=== PATIENT | female | born 1975 | race Two or more races ===

== ENCOUNTER → 2024-10-10 | Outpatient (CLI) | payer MEDICAID, SELFPAY ==
--- NOTE | 2024-10-10 09:23 | XR_ITS ---
Examination: Esophagram standard Fluoroscopy 8 spot fluoroscopic films of the esophagus No active chest single view Upright soft tissue lateral neck single view Exam date and time: October 10, 2024 1122 hours INDICATIONS: Difficulty swallowing swelling and throat beginning 2 months ago TECHNIQUE AND FINDINGS: Upright PA chest single view demonstrates normal heart size No mediastinal lymphadenopathy Lungs are clear Soft tissue lateral neck single view shows normal epiglottis No prevertebral soft tissue prominence Patient swallowed thin barium with a spot fluoroscopic films of the sella turcica is Primary peristaltic esophageal waves Mild intermittent gastroesophageal reflux There is no stricture at the gastroesophageal junction No esophageal ulceration or intraluminal defect IMPRESSION: Mild intermittent gastroesophageal reflux If swelling in the throat persists, consider CT soft tissue neck post intravenous contrast follow-up
== END | disposition home or self-care (01) ==
PROVIDERS: PCP Family Medicine; Referring Provider Nurse Practitioner Family; Visit Provider Nurse Practitioner Family
DX: K21.9 Gastro-esophageal reflux disease without esophagitis (principal)
CPT/HCPCS: 74220

== ENCOUNTER 2024-12-12 09:18 | Emergency (ER) | payer MEDICAID, SELFPAY ==
[2024-12-12 09:18] VITALS: BMI 31.4
[2024-12-12 09:52] VITALS: BP 98/70; PULSE 55; RESP 18; TEMP 36.6; O2SAT 100
--- NOTE | 2024-12-12 10:01 | EKG_ITS ---
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
--- NOTE | 2024-12-12 10:01 | XR_ITS ---
Examination: PA lateral chest 2 views TECHNIQUE: Upright PA lateral chest 2 views Exam date and time: December 12, 2024 1006 hours INDICATIONS: Chest pain beginning one month ago FINDINGS: Normal heart size. Lungs are clear. The osseous structures are intact IMPRESSION: No active disease
--- NOTE | 2024-12-12 10:02 | PD.EDRME ---
Rapid Medical Screening Exam RME Arrival date/time: 12/12/24 09:18 49-year-old female with no known medical history presents to the emergency room with a chief complaint of left arm numbness, cough and congestion x 1 month Chief Complaint: Flu Like Symptoms Vital signs: Vital Signs Temperature 97.9 F 12/12/24 09:52 Pulse Rate 55 L 12/12/24 09:52 Respiratory Rate 18 12/12/24 09:52 Blood Pressure 98/70 12/12/24 09:52 Pulse Oximetry (%) 100 12/12/24 09:52 Oxygen Delivery Method Room Air 12/12/24 09:52 Vital signs reviewed by provider: Yes
[2024-12-12 11:03] LABS: Collection Type, Urine Clean Catch
[2024-12-12 11:20] LABS: Amphetamine/Methamp Scrn,U Negative (Negative); Barbiturate Screen,Urine Negative (Negative); Benzodiazepines Screen,Urine Negative (Negative); Benzoylecgonine Screen, Ur Negative (Negative); Fentanyl Screen,Urine Negative (Negative); Opiate Screen,Urine Negative (Negative); THC Screen,Urine Negative (Negative)
[2024-12-12 11:27] LABS: Bilirubin,Urine Negative (Negative); Blood,Urine 2+ (Negative); Clarity,Urine Clear (Clear/Hazy); Color,Urine Lt-Yellow (Lt Yel-Yel); Glucose, Urine Negative (Negative); Ketones,Urine Negative (Negative); Leukocyte Esterase,Urine Negative (Negative); Nitrite,Urine Negative (Negative); Protein,Urine Negative (Neg - Trace); RBC,Urine < 1 /hpf (0-3); Specific Gravity,Urine 1.018 (1.001-1.035); Squamous Epithelial Cell,Urine 2 /hpf (0-5); Urobilinogen,Urine Negative mg/dL (0.0-1.0); WBC,Urine < 1 /hpf (0-5)
[2024-12-12 11:53] LABS: B-Type Natriuretic Peptide < 20 pg/mL (0-100)
[2024-12-12 11:54] LABS: Basophils % (Auto) 0 % (0-2.5); Eosinophils # (Auto) 0.1 Thou/mm3 (0.0-0.5); Eosinophils % (Auto) 1 % (0-10); Hematocrit 40.6 % (36.0-46.0); Immature Granulocytes % (Auto) 0 % (0-0); Immature Granulocytes Auto 0.02 Thou/mm3 (0.00-0.00); Lymphocytes # (Auto) 1.6 Thou/mm3 (1.0-4.8); Lymphocytes % (Auto) 25 % (10-50); Mean Corpuscular Hemoglobin 29.5 pg (25.0-35.0); Mean Corpuscular Volume 92 fL (80-100); Monocytes # (Auto) 0.3 Thou/mm3 (0.0-0.8); Monocytes % (Auto) 5 % (0-12); Neutrophils # (Auto) 4.4 Thou/mm3 (1.8-7.7); Neutrophils % (Auto) 69 % (37-80); Nucleated Red Blood Cell % 0 /100 WBC (0); Platelet Count 158 Thou/mm3 (140-440); RDW Standard Deviation 48.9 fL (36.4-46.3); White Blood Count 6.4 Thou/mm3 (3.6-11.0)
[2024-12-12 12:00] LABS: Alanine Aminotransferase 16 U/L (10-49); Albumin, Serum 4.7 gm/dL (3.5-5.0); Albumin/Globulin Ratio 1.7 (1.2-2.2); Alkaline Phosphatase 62 U/L (46-116); Anion Gap 6 (7-16); Aspartate Amino Transferase 22 U/L (0-34); BUN/Creatinine Ratio 16 Ratio (12-20); Bilirubin,Total 0.5 mg/dL (0.3-1.2); Blood Urea Nitrogen 14 mg/dL (9-23); Calcium 9.4 mg/dL (8.3-10.6); Calcium (Corrected) 9.4 mg/dL (8.5-10.1); Carbon Dioxide 24.6 mMol/L (20.0-31.0); Chloride 109 mMol/L (98-107); Creatinine (Component) 0.9 mg/dL (0.6-1.3); Estimated Creatinine Clearance 82.7 mL/min (>60); Free T4 (Free Thyroxine) 0.36 ng/dL (0.89-1.76); Globulin 2.8 gm/dL (2.3-3.5); Glucose 85 mg/dL (74-106); LDH (Lactate Dehydrogenase) 202 U/L (120-246); Magnesium 1.9 mg/dL (1.6-2.6); Osmolality,Calculated 278 (275-295); Potassium 4.1 mMol/L (3.4-5.1); Sodium 140 mMol/L (136-145); Thyroid Stimulating Hormone 137.15 uIU/mL (0.55-4.78); Total Protein 7.5 gm/dL (5.7-8.2); Troponin I < 0.002 ng/mL (0.0-0.045); eGFR > 60 See Note
[2024-12-12 13:15] LABS: Partial Thromboplastin Time 21.7 Seconds (22.0-36.0); Prothrombin Time 10.8 Seconds (9.0-12.2)
[2024-12-12 13:33] VITALS: BP 102/64; PULSE 54; RESP 18; TEMP 37; O2SAT 99
--- NOTE | 2024-12-12 14:30 | PD.EDURI ---
Upper Respiratory Inf. RME/HPI General Chief Complaint: Flu Like Symptoms Stated Complaint: HEADACHE, SORE THROAT, VOMITING DIARRHEA X2 Time Seen by Provider: 12/12/24 14:05 Arrival date/time: 12/12/24 09:18 RME / HPI RME / HPI Narrative: 49-year-old female patient with significant history of hypothyroidism, came in for evaluation regarding flulike symptoms. Patient's been having flulike symptoms, describes headache, sore throat, nausea, vomiting diarrhea x 2 days. Patient denies any other complaints currently taking levothyroxine 200 mcg daily with good compliance. Related Data Previous Rx's ?Medication ?Instructions ?Recorded levothyroxine 100 mcg tablet 200 mcg (2 x 100 mcg) PO ACBR #30 02/22/24 tabs sennosides 8.6 mg tablet (senna) 8.6 mg PO QDAY PRN constipation 30 02/22/24 days #30 tabs nicotine 7 mg/24 hr daily 7 mg topical DAILY #14 ea 04/02/24 transdermal patch varenicline 0.5 mg (11)-1 mg (42) 0.5 tab PO DAILY #53 tabs 04/03/24 tablets in a dose pack (Chantix Starting Month Box) ibuprofen 800 mg tablet 800 mg PO Q8H PRN pain #30 tabs 12/12/24 Allergies Allergy/AdvReac Type Severity Reaction Status Date / Time No Known Allergies Allergy Verified 12/12/24 09:22 Review of Systems Review of Systems Narrative Review of Systems: Review of system reviewed and within normal limits except mentioned in HPI ED Exam Narrative Physical exam: VITAL SIGNS: Reviewed. GENERAL APPEARANCE: Alert and interactive, follows commands, no acute distress, HEAD AND FACE: Non-traumatic. ENT: PERRL, pink conjunctivitis, eyelid no trauma, Mucous membrane moist. NECK: Supple, nontender, no nuchal rigidity. CHEST: No tenderness, no crepitus, no paradoxical movement, no retractions. LUNGS: Clear, well ventilated, symmetric, no rales, no wheezing, no ronchi, no stridor, good breath sounds bilaterally. HEART: Regular rate, regular rhythm, no murmur, no gallops. ABDOMEN: Soft, positive bowel sounds, nondistended, no guarding, nontender, no rebound, no masses, RECTAL: Deferred. GENITAL: Deferred. NEUROLOGICAL: Gross motor function intact sensory function intact, Appropriate for age. MUSCULOSKELETAL: low back nontender, full range of motion. EXTREMITIES: Nontender, full range of motion. SKIN: Color pink, dry, no rash, no lacerations, no abrasions, no contusions. LYMPHATICS: Deferred. Course Quality Measures none Orders Category Date Time Status Bedside COVID-19 Antigen Test NOW Care 12/12/24 10:01 Active Bedside Influenza A&B Antigen Test NOW Care 12/12/24 10:01 Active EKG (ED ONLY) *Do not use* NOW Care 12/12/24 10:01 Completed EKG (ED Only) Stat Exams 12/12/24 10:01 Draft XR chest 2V Stat Exams 12/12/24 10:01 Completed B-Type Natriuretic Peptide Stat Lab 12/12/24 10:57 Completed CBC Stat Lab 12/12/24 10:57 Completed Comprehensive Metabolic Panel Stat Lab 12/12/24 10:57 Completed Drug Screen,Urine Stat Lab 12/12/24 10:45 Completed Free T4 (Free Thyroxine) Stat Lab 12/12/24 10:57 Completed LDH (Lactate Dehydrogenase) Stat Lab 12/12/24 10:57 Completed Magnesium Stat Lab 12/12/24 10:57 Completed Partial Thromboplastin Time Stat Lab 12/12/24 10:57 Completed Prothrombin Time with INR Stat Lab 12/12/24 10:57 Completed TSH [Thyroid Stimulating Hormone] Stat Lab 12/12/24 10:57 Completed Troponin I Stat Lab 12/12/24 10:57 Completed Urinalysis Stat Lab 12/12/24 10:45 Completed Vital Signs Vital signs: Vital Signs Temperature 97.9 F 12/12/24 09:52 Pulse Rate 55 L 12/12/24 09:52 Respiratory Rate 18 12/12/24 09:52 Blood Pressure 98/70 12/12/24 09:52 Pulse Oximetry (%) 100 12/12/24 09:52 Oxygen Delivery Method Room Air 12/12/24 09:52 Upper Respiratory Infection MDM Narrative MDM Narrative:: 49-year-old female patient with significant history of hypothyroidism, came in for evaluation regarding flulike symptoms. Patient's been having flulike symptoms, describes headache, sore throat, nausea, vomiting diarrhea x 2 days. Patient denies any other complaints currently taking levothyroxine 200 mcg daily with good compliance. Laboratory workup all came back unremarkable except for hypothyroidism. Urinalysis no UTI. Chest x-ray came back unremarkable. EKG showed sinus bradycardia, ventricular rate of 52 bpm, no ST segment elevation depression noted. She was advised to closely follow-up with PCP regarding her hypothyroidism. Patient appears nontoxic and hemodynamically stable. Patient discharged home and instructed to follow-up with primary care provider in 24 to 48 hours. Instructed to return to the emergency department immediately if worsening of symptoms Patient data External records reviewed:: None Clinical information provided by:: patient Social determinants that could affect healthcare access:: none Patient has the following chronic illnesses:: None How is presenting disease/condition affected by chronic disease/condition?: no chronic disease Evaluation data The following diagnostics were reviewed and interpreted by me:: lab results, radiology exam(s) and EKG tracing(s) Lab and/or radiology exams considered but not ordered:: None Interpretation Summary: See results MDM Medications / Prescriptions Medications or Prescriptions considered but not ordered:: None Medication administrations:: None Consultations Consultation(s) initiated? (list below): No Diagnosis Upper Respiratory Differential Diagnosis: upper respiratory infection, viral infection and pharyngitis Most likely diagnosis given after review of the tests above:: Flulike symptoms, hypothyroidism Admission Indicated Admission indicated?: not indicated Explain why admission is indicated or not indicated:: Stable Admission Request Was there a request for admission?: No Disposition Plan Disposition Plan: Discharge Discharge Attestation Discharge Attestation: The patient and all family members were given an opportunity to ask questions and understood the discharge instructions. Discharge instructions specifically effects, indications for sooner follow up or return to the emergency department, and the expected course of current diagnosis. Patient condition: Stable Discharge Plan Plan Patient Disposition: HOME (Self Care) Disposition Comment: Stable Prescriptions/Referrals Prescriptions/Med Rec: New ibuprofen 800 mg tablet 800 mg PO Q8H PRN (Reason: pain) Qty: 30 0RF No Action nicotine 7 mg/24 hr patch 24 hour 7 mg topical DAILY Qty: 14 0RF varenicline [Chantix Starting Month Box] 0.5 mg (11)- 1 mg (42) tablets,dose pack 0.5 tab PO DAILY Qty: 53 0RF levothyroxine 100 mcg Tablet 200 mcg PO ACBR Qty: 30 3RF sennosides [senna] 8.6 mg tablet 8.6 mg PO QDAY PRN (Reason: constipation) 30 Days Qty: 30 2RF Referrals: No Primary/Family,Physician [Primary Care Provider] - In 1 week Problem List Clinical Impression: Flu-like symptoms, Hypothyroidism Patient/Caregiver Discharge Instructions Discharge Activity: activity as tolerated Education Materials: ED Hypothyroidism Additional Instructions: Thank you for the opportunity for serving you today. You are stable for discharged . You are advised to: Follow-up with your PCP in 1 to 2 days Return to ED for worsening of symptoms Increase oral fluids Take medication as prescribed Print Language: Wolof Stand Alone Forms: Gela Award Info., Patient Portal Info Letter PA/BEHAVIOR CLINICIAN Supervising Physician PA/BEHAVIOR CLINICIAN Supervising Physician: Dr Kaba
[2024-12-12 14:46] VITALS: BP 102/71; PULSE 50; RESP 12; O2SAT 100
== END 2024-12-12 15:23 | disposition home or self-care (01) ==
PROVIDERS: Nurse Practitioner Family; Emergency Provider Emergency Medicine
DX: R51.9 Headache, unspecified (principal); E03.9 Hypothyroidism, unspecified; J02.9 Acute pharyngitis, unspecified; R19.7 Diarrhea, unspecified; R11.2 Nausea with vomiting, unspecified
CPT/HCPCS: 36415; 71046; 80053; 80307; 81001; 83615; 83735; 83880; 84439; 84443; 84484; 85025; 85610; 85730; 93005; 99283

== ENCOUNTER → 2024-12-17 | Outpatient (CLI) | payer MEDICAID, SELFPAY ==
--- NOTE | 2024-12-17 09:49 | XR_ITS ---
Examination: Esophagram standard Fluoroscopy 28 spot fluoroscopic films of the esophagus Upright PA chest single view Upright soft tissue lateral neck single view Exam date and time: December 17, 2024 1047 hours INDICATIONS: Difficulty swallowing 6 months TECHNIQUE AND FINDINGS: Upright PA chest single view demonstrates normal heart size lungs Soft tissue lateral neck demonstrates normal epiglottis no prevertebral foreign body Patient swallowed thin barium with 28 spot fluoroscopic films of the esophagus, fluoroscopy 0.22 minutes Primary peristaltic esophageal waves noted No constricting esophageal lesion Mild gastroesophageal reflux. There is no stricture at the gastroesophageal junction IMPRESSION: Mild gastroesophageal reflux There is no stricture at the gastroesophageal junction
== END | disposition home or self-care (01) ==
LOC: CDIM 09:28
PROVIDERS: PCP Nurse Practitioner Family; Referring Provider Nurse Practitioner Family; Visit Provider Nurse Practitioner Family
DX: R13.10 Dysphagia, unspecified (principal); K21.9 Gastro-esophageal reflux disease without esophagitis
CPT/HCPCS: 74220; A4699

== ENCOUNTER 2025-01-27 08:14 | Emergency (ER) | payer MEDICAID, SELFPAY ==
[2025-01-27 08:17] VITALS: BMI 33.5
[2025-01-27 08:30] VITALS: BP 110/79; PULSE 62; RESP 17; TEMP 36.4; O2SAT 97
--- NOTE | 2025-01-27 08:39 | XR_ITS ---
Examination: Hand, left 3 views Technique: Hand AP, oblique, lateral 3 views Date and time of exam: January 27, 2025 0842 hours INDICATIONS: Injury to the hand 2 days ago, hand pain FINDINGS: No acute fracture. No dislocation No foreign body IMPRESSION: No acute fracture
--- NOTE | 2025-01-27 08:43 | EDNOTE_ITS ---
Upper Extremity Injury RME/HPI General Chief Complaint: Hand/Wrist Problems Stated Complaint: BILATERAL HAND INJURY Time Seen by Provider: 01/27/25 08:19 Source: patient Arrival date/time: 01/27/25 08:14 49-year-old female with no known medical history presents to the emergency room with a chief complaint of bilateral hand injuries. Patient states on Monday while at work she was hit with a ladder to the outer part of her hand causing tenderness and pain when she clenches her fists. Patient is also complaining of a thorn piercing her right index finger that is now causing tenderness and pain to her right index finger. Mode of arrival: ambulatory Limitations: no limitations Related Data Previous Rx's ?Medication ?Instructions ?Recorded levothyroxine 100 mcg tablet 200 mcg (2 x 100 mcg) PO ACBR #30 02/22/24 tabs sennosides 8.6 mg tablet (senna) 8.6 mg PO QDAY PRN co nstipation 30 02/22/24 days #30 tabs nicotine 7 mg/24 hr daily 7 mg topical DAILY #14 ea transdermal patch varenicline tartrate 0.5 mg (11)-1 0.5 tab PO DAILY #5 3 tabs 04/03/24 mg (42) tablets in a dose pack (Chantix Starting Month Box) ibuprofen 800 mg tablet 800 mg PO Q8H PRN pain #30 t abs 12/12/24 cephalexin 500 mg capsule 500 mg PO BID 7 days #14 cap s 01/27/25 Allergies Allergy/AdvReac Type Severity Reaction Status Date / Time No Known Allergies Allergy Verified 12/12/24 09:22 Review of Systems Review of Systems Systems Reviewed: All systems reviewed, normal except as documented Constitutional Constitutional: Reports system reviewed and no additional complaints, except as documented, Denies fatigue, Denies fever(s), Denies headache(s) and Denies weakness Eyes Eyes: Reports system reviewed and no additional complaints, except as documented, Denies blurry vision and Denies change in vision ENT Ears, Nose, Mouth, and Throat: Reports system reviewed and no additional complaints, except as documented, Denies otalgia, Denies headache(s), Denies nasal congestion, Denies throat swelling and Denies vertigo Cardiovascular Cardiovascular: Reports system reviewed and no additional complaints, except as documented, Denies chest pain, Denies dyspnea and Denies dyspnea on exertion Respiratory Respiratory: Reports system reviewed and no additional complaints, except as documented, Denies chest congestion, Denies cough, Denies dyspnea, Denies dyspnea on exertion and Denies wheezing Gastrointestinal Gastrointestinal: Reports system reviewed and no additional complaints, except as documented, Denies abdominal pain, Denies cramping, Denies nausea and Denies vomiting Genitourinary Genitourinary: Reports system reviewed and no additional complaints, except as documented Musculoskeletal Musculoskeletal: Reports system reviewed and no additional complaints, except as documented and Denies back pain Integumentary/Breasts Skin/Breast: Reports system reviewed and no additional complaints, except as documented and Reports wounds Neurologic Neurologic: Reports system reviewed and no additional complaints, except as documented, Denies confusion, Denies headache(s), Denies lack of coordination, Denies vertigo and Denies weakness Psychiatric Psychiatric: Reports system reviewed and no additional complaints, except as documented, Denies anxiety, Denies confusion, Denies depression, Denies paranoia, Denies suicidal ideation and Denies tactile hallucinations Endocrine Endocrine: Reports system reviewed and no additional complaints, except as documented and Denies fatigue Hematologic/Lymphatic Hematologic/Lymphatic: Reports system reviewed and no additional complaints, except as documented and Denies lymphadenopathy Allergic/Immunologic Allergic/Immunologic: Reports system reviewed and no additional complaints, except as documented, Denies throat swelling, Denies urticaria and Denies wheezing ED Exam General Limitations: Present no limitations General appearance: Present alert and in no apparent distress Head Head exam: Present atraumatic Eye Eye exam: Present normal appearance, PERRL and EOMI ENT ENT exam: Present normal exam, normal oropharynx and mucous membranes moist Neck Neck exam: Present normal inspection, full ROM and trachea midline Chest Chest inspection: Present normal inspection and symmetric chest wall rise Respiratory Respiratory exam: Present normal lung sounds bilaterally Cardiovascular Cardiovascular exam: Present regular rate, normal rhythm and normal heart sounds Abdominal Exam Abdominal exam: Present soft and normal bowel sounds Extremities Exam Extremities exam: Present normal inspection and full ROM Expanded Upper Extremity Exam Shoulder exam: Present normal inspection Arm exam: Present normal inspection Elbow exam: Present normal inspection Forearm/Wrist exam: Present normal inspection Hand exam: Present tenderness and erythema Hand L/R back image: 2 1. Thorn puncture causing tenderness pain and mild erythema and swelling. 2. Tenderness and pain after being hit by a ladder while at work. Back Exam Back exam: Present normal inspection and full ROM Neurological Exam Neurological exam: Present alert, oriented X3 and CN II-XII intact Psychiatric Psychiatric exam: Present normal affect and normal mood Skin Skin exam: Present warm, dry, intact and normal color Course Quality Measures none Orders Category Date Time Status XR hand comp LT min 3V Stat Exams 01/27/25 08:39 Completed Vital Signs Vital signs: Vital Signs Temperature 97.6 F 01/27/25 08:30 Pulse Rate 62 01/27/25 08:30 Respiratory Rate 17 01/27/25 08:30 Blood Pressure 110/79 01/27/25 08:30 Pulse Oximetry (%) 97 01/27/25 08:30 Oxygen Delivery Method Room Air 01/27/25 08:30 O2 saturation 97% within normal limits Extremity Injury MDM Narrative MDM Narrative:: 49-year-old female with no known medical history presents to the emergency room with a chief complaint of bilateral hand injuries. Patient states on Monday while at work she was hit with a ladder to the outer part of her hand causing tenderness and pain when she clenches her fists. Patient is also complaining of a thorn piercing her right index finger that is now causing tenderness and pain to her right index finger. Patient is hemodynamically stable and in no apparent distress. She is afebrile not tachycardic and not tachypneic Physical examination of her right hand shows pain and tenderness to her index finger as well as mild swelling. Patient states on Monday she was punctured by a thorn at work. Patient states the thorn is removed but it was causing her some pain when she moves her finger. Physical examination also shows some tenderness and pain to the left hand. Patient states that while at work she was using a ladder and while moving a ladder injured her left hand. X-ray of the left hand was completed and was negative for any acute fracture or dislocation Patient was discharged and educated to follow-up with primary care provider in the next 24 to 48 hours and return to the emergency room for any evidence of worsening signs or symptoms Patient data External records reviewed:: [facility] previous records Clinical information provided by:: patient Social determinants that could affect healthcare access:: none Patient has the following chronic illnesses:: No chronic illness How is presenting disease/condition affected by chronic disease/condition?: no chronic disease Evaluation data The following diagnostics were reviewed and interpreted by me:: lab results and radiology exam(s) Lab and/or radiology exams considered but not ordered:: Labs and radiology exams considered and ordered Interpretation Summary: Left hand x-ray-no acute fracture or dislocation Medications / Prescriptions Medications or Prescriptions considered but not ordered:: Rx given Medication administrations:: Rx given Consultations Consultation(s) initiated? (list below): No Diagnosis Upper Extremity Injury Differential Diagnosis: finger sprain, fracture of hand and other (Cellulitis) Most likely diagnosis given after review of the tests above:: Cellulitis of finger Admission Indicated Admission indicated?: not indicated Admission Request Was there a request for admission?: No Disposition Plan Disposition Plan: Discharge Discharge Attestation Discharge Attestation: The patient and all family members were given an opportunity to ask questions and understood the discharge instructions. Discharge instructions specifically effects, indications for sooner follow up or return to the emergency department, and the expected course of current diagnosis. Patient condition: Stable Discharge Plan Plan Patient Disposition: HOME (Self Care) Discharge Disposition comment: Stable Prescriptions/Referrals Prescriptions/Med Rec: New cephalexin 500 mg capsule 500 mg PO BID 7 Days Qty: 14 0RF No Action nicotine 7 mg/24 hr patch 24 hour 7 mg topical DAILY Qty: 14 0RF varenicline tartrate [Chantix Starting Month Box] 0.5 mg (11)- 1 mg (42) tablets,dose pack 0.5 tab PO DAILY Qty: 53 0RF ibuprofen 800 mg tablet 800 mg PO Q8H PRN (Reason: pain) Qty: 30 0RF levothyroxine 100 mcg Tablet 200 mcg PO ACBR Qty: 30 3RF sennosides [senna] 8.6 mg tablet 8.6 mg PO QDAY PRN (Reason: constipation) 30 Days Qty: 30 2RF Referrals: Jj Kinney PA-C [Primary Care Provider] - In 1 week Problem List Clinical Impression: Cellulitis of right index finger Patient/Caregiver Discharge Instructions Education Materials: Discharge Instructions for Cellulitis, ED Cellulitis Additional Instructions: Por favor, consulte con hooks m?dico de cabecera en las pr?ximas 24 a 48 horas. Se le enviar?n antibi?ticos a hooks farmacia para aliviar la inflamaci?n leve y la sensibilidad en el dedo derecho. Rec?jalos y t?melos seg?n lo indicado. Si observa alg?n empeoramiento de los signos o s?ntomas, acuda a urgencias de inmediato. La radiograf?a de hooks mano izquierda fue negativa para cualquier fractura o luxaci?n aguda.. Print Language: Upper Sorbian Stand Alone Forms: Gela Award Info., Work/School Release, Patient Portal Info Letter PA/FURNACE OPERATOR AND TENDER Supervising Physician PA/FURNACE OPERATOR AND TENDER Supervising Physician: Dr. Childs
== END 2025-01-27 09:25 | disposition home or self-care (01) ==
PROVIDERS: Emergency Provider Family Medicine; PCP Physician Assistant
DX: S61.230A Puncture wound without foreign body of right index finger without damage to nail, initial encounter (principal); S69.92XA Unspecified injury of left wrist, hand and finger(s), initial encounter; L03.011 Cellulitis of right finger; W60.XXXA Contact with nonvenomous plant thorns and spines and sharp leaves, initial encounter; W22.8XXA Striking against or struck by other objects, initial encounter; Y99.0 Civilian activity done for income or pay
CPT/HCPCS: 73130; 99283